=== PATIENT | female | born 1975 | race Caucasian/White ===

== ENCOUNTER 2023-07-27 00:04 | Emergency (ER) | payer MEDICAID, OTHER ==
[~2023-07-27] VITALS: Ht 162.6 cm; Wt 70.0 kg
[2023-07-27 00:13] VITALS: BP 159/91; PULSE 110; RESP 16; TEMP 98.4; O2SAT 99
[2023-07-27] MEDS ORDERED: TETANUS, DIPHTHERIA, PERTUSSIS VAC/PF 0.5ML (>10YR OLD) IM ONE (00:15)
[2023-07-27] MEDS ORDERED: ACETAMINOPHEN 325MG TABLET PO ONE (00:15)
== END 2023-07-27 02:32 | disposition left against medical advice (07) ==
LOC: ER 00:04
DX: G89.11 Acute pain due to trauma (principal); Y09 Assault by unspecified means
CPT/HCPCS: 99283

== ENCOUNTER 2023-10-16 15:27 | Emergency (ER) | payer OTHER ==
[~2023-10-16] VITALS: Ht 157.5 cm; Wt 52.0 kg
[2023-10-16 15:32] VITALS: BP 165/90; PULSE 104; RESP 20; TEMP 98.4; O2SAT 95
[2023-10-16] MEDS ORDERED: SODIUM CHLORIDE 0.9% 1,000 ML IV ONE (15:45)
[2023-10-16 16:11] LABS: BASOPHILS % 0.3 % (0.0-2.0); EOSINOPHILS % 1.6 % (0.0-5.0); HEMATOCRIT. 41.4 % (36.0-48.0); HEMOGLOBIN. 13.6 g/dL (12.0-16.0); LYMPHOCYTES % 24.9 % (20.0-50.0); MEAN CORPUSCULAR HEMOGLOBIN 29.2 pg (28.0-32.0); MEAN CORPUSCULAR HGB CONC 32.9 g/dL (31.0-37.0); MEAN CORPUSCULAR VOLUME 88.7 fL (81.0-99.0); MEAN PLATELET VOLUME 8.3 fl (7.4-10.4); MONOCYTES % 6.1 % (2.0-8.0); NEUTROPHILS % 67.1 % (40.0-76.0); PLATELET 284 x1000/uL (130-400); RED BLOOD CELL COUNT 4.67 mill/uL (4.2-5.4); RED CELL DISTRIBUTION WIDTH 15.4 % (11.6-14.6); WHITE BLOOD COUNT 6.1 x1000/uL (4.5-11.0)
[2023-10-16 16:30] LABS: HCG SCREEN NEGATIVE
[2023-10-16 16:37] LABS: ALANINE AMINOTRANSFERASE 16 IU/L (10-49); ALBUMIN 4.1 g/dL (3.2-4.8); ASPARTATE AMINOTRANSFERASE 21 IU/L (<34); BILIRUBIN TOTAL 0.7 mg/dL (0.1-1.0); CARBON DIOXIDE 24 mEq/L (21-32); CHLORIDE 107 mEq/L (98-107); CREATININE 0.7 mg/dL (0.6-1.0); ETHANOL BLOOD 170 mg/dL (<10); GLUCOSE 97 mg/dL (70-105); POTASSIUM 3.8 mEq/L (3.5-5.1); PROTEIN TOTAL 7.6 g/dL (6.0-8.3); SODIUM 140 mEq/L (136-145); TROPONIN I HIGH SENSITIVITY 23 ng/L (3.0-34); UREA NITROGEN BLOOD 9 mg/dL (9-23)
== END 2023-10-16 17:32 | disposition left against medical advice (07) ==
LOC: ER 15:27
DX: R55 Syncope and collapse (principal); E78.00 Pure hypercholesterolemia, unspecified; I10 Essential (primary) hypertension; F41.0 Panic disorder [episodic paroxysmal anxiety]; E05.90 Thyrotoxicosis, unspecified without thyrotoxic crisis or storm; Z98.890 Other specified postprocedural states; Z88.6 Allergy status to analgesic agent
CPT/HCPCS: 80053; 80320; 84703; 83880; 85025; 84484; 36415; 71045; 93005; 99285; J7030; G0480